=== PATIENT | female | born 1970 | race Hispanic/Latino ===

== ENCOUNTER → 2023-08-03 17:37 | Outpatient (REF) | payer OTHER, SELFPAY | LOC: WDC 17:37 | PROVIDERS: ATTENDING PHYSICIAN Internal Medicine | DX: Z12.31 Encounter for screening mammogram for malignant neoplasm of breast (principal); E05.90 Thyrotoxicosis, unspecified without thyrotoxic crisis or storm | CPT/HCPCS: 77063; 77067 ==

== ENCOUNTER → 2023-09-21 15:20 | Outpatient (REF) | payer OTHER, SELFPAY | LOC: RAD 15:20 | PROVIDERS: ATTENDING PHYSICIAN Specialist | DX: M25.512 Pain in left shoulder (principal); M25.561 Pain in right knee | CPT/HCPCS: 73030; 73564 ==

== ENCOUNTER → 2023-10-28 17:26 | Outpatient (REF) | payer OTHER, SELFPAY ==
[2023-10-28 18:49] LABS: Vitamin D, 25-OH*** 49.1 ng/mL (30-80)
[2023-10-28 18:52] LABS: FSH 9.9 mIU/ml
[2023-10-28 19:39] LABS: Vitamin B12 360 pg/ml (239-931)
== END ==
LOC: CLINIC 17:26
PROVIDERS: ATTENDING PHYSICIAN Internal Medicine
DX: E05.90 Thyrotoxicosis, unspecified without thyrotoxic crisis or storm (principal)
CPT/HCPCS: 36415; 82306; 82607; 82746; 83001

== ENCOUNTER → 2023-11-23 15:15 | Outpatient (REF) | payer OTHER, SELFPAY | LOC: RAD 15:15 | PROVIDERS: ATTENDING PHYSICIAN Nurse Practitioner Adult Health | DX: E05.90 Thyrotoxicosis, unspecified without thyrotoxic crisis or storm (principal) | CPT/HCPCS: 76536 ==

== ENCOUNTER → 2024-12-29 15:33 | Outpatient (REF) | payer OTHER, SELFPAY | LOC: HWWDC 15:33 | PROVIDERS: ATTENDING PHYSICIAN Nurse Practitioner Adult Health | DX: Z12.31 Encounter for screening mammogram for malignant neoplasm of breast (principal) | CPT/HCPCS: 77066 ==

== ENCOUNTER → 2025-01-20 07:37 | Outpatient (REF) | payer OTHER, SELFPAY ==
[2025-01-20 08:45] LABS: Hematocrit 38.6 % (37.0-47.0); Hemoglobin 12.9 g/dL (12.0-16.0); Mean Corp Hgb Conc. 33.4 g/dL (33.0-37.0); Mean Corpuscular Volume 92.6 fL (81.0-99.0); Nucleated Red Blood Cells % 0 %; Platelet Count 245 10^3/uL (130-400); Red Cell Dist. Width 12.5 % (11.5-14.5); Reticulocyte Count 0.8 % (0.4-2.8)
[2025-01-20 09:30] LABS: ALT (SGPT) 17 U/L (0-35); AST (SGOT) 15 U/L (14-36); Albumin 4.1 g/dl (3.5-5.0); Alkaline Phosphatase 62 U/L (38-126); Blood Urea Nitrogen 19 mg/dl (7-17); Calcium 9.5 mg/dl (8.4-10.2); Carbon Dioxide 27 mmol/L (22-30); Chloride 107 mmol/L (98-107); Glucose 90 mg/dl (70-99); HDL Cholesterol 43 mg/dl; LDL Cholesterol, Calculated 87 mg/dl; Potassium 4.3 mmol/L (3.5-5.1); Sodium 140 mmol/L (135-145); Total Protein 7.0 g/dl (6.3-8.2); Very Low Density Lipoprotein 7 mg/dl (0-30); eGFR > 60.00
[2025-01-20 10:01] LABS: Glycohemoglobin (HgbA1c) 5.4 % (4.0-5.6)
== END ==
LOC: REG 07:37
DX: E05.90 Thyrotoxicosis, unspecified without thyrotoxic crisis or storm (principal)
CPT/HCPCS: 36415; 80053; 80061; 83036; 84443; 85025; 85045

== ENCOUNTER → 2025-01-31 17:09 | Outpatient (REF) | payer OTHER, SELFPAY ==
[2025-02-03 05:41] LABS: HPV, High Risk Not Detected; HPV, High Risk Source Cervical
== END ==
LOC: CLINIC 17:09
PROVIDERS: ATTENDING PHYSICIAN Nurse Practitioner Adult Health
DX: Z12.4 Encounter for screening for malignant neoplasm of cervix (principal)
CPT/HCPCS: 87624